=== PATIENT | female | born 1995 | race African-American/Black ===

== ENCOUNTER 2020-11-03 19:27 | Inpatient (IN) ==
[2020-11-03 20:06] LABS: Bilirubin,Urine Negative (Negative); Blood, Urine Negative (Negative); Glucose,Urine (UA) >=500 mg/dL (Negative); Ketones,Urine Negative (Negative); Mucus,Urine Occasional /LPF (Occasional); Nitrite,Urine Negative (Negative); Protein,Urine Negative; Squamous Epithelial Cell,Urine Occasional /HPF (0-10); Urine Appearance CLEAR (Clear); Urine Color Yellow (Yellow); Urine Specific Gravity 1.012 (1.001-1.035); Urine Urobilinogen < 2.0 EU/DL (0.2-1.0)
[2020-11-03] MEDS ORDERED: ONDANSETRON 4 MG/2 ML VIAL IV PRN (20:47)
[2020-11-03] MEDS ORDERED: BUTORPHANOL 2 MG/ML VIAL IV PRN (20:47)
[2020-11-03] MEDS ORDERED: MEPERIDINE 50 MG/1 ML VIAL IV PRN (20:47)
[2020-11-03] MEDS ORDERED: MAGNESIUM SULF DRIP 40 GM/1,000 ML ML IV SCH (21:00)
[2020-11-03 21:29] LABS: Basophils % 0.2 % (0.0-0.8); Eosinophils # 0.2 10*3/uL (0.0-0.87); Eosinophils % 1.1 % (0.00-10.9); Hematocrit 37.1 VOL% (35.7-47.0); Hemoglobin 12.3 GM/DL (12.0-16.0); Immature Granulocytes % 0.6 %; Lymphocytes % 12.5 % (21.3-54.2); Mean Corpuscular HGB Conc 33.2 GM/DL (32-36); Mean Corpuscular Volume 92.8 FL (87-102); Mean Platelet Volume 8.9 FL (9.6-12.0); Monocytes % 8.6 % (1.7-12.7); Platelet Count 212 T/CUMM (130-400); White Blood Count 15.8 T/CUMM (4-12)
[2020-11-03 21:54] LABS: Alanine Aminotransferase 17 U/L (13-56); Alkaline Phosphatase 76 U/L (45-117); Aspartate Amino Transferase 15 U/L (0-37); Bilirubin,Total < 0.39 MG/DL (0.20-1.00); Blood Urea Nitrogen 7 MG/DL (7-18); Calcium 8.6 MG/DL (8.5-10.1); Carbon Dioxide 25 MMOL/L (21-32); Estimated Glom Filtration Rate 149 ML/MIN; Glucose 74 MG/DL (74-106); Potassium 3.5 MMOL/L (3.5-5.1); Sodium 136 MMOL/L (136-145); Total Protein 7.2 G/DL (6.4-8.2)
[2020-11-03] MEDS: LACTATED RINGERS 1,000 ML IV SCH (22:44)
[2020-11-03] MEDS: AMPICILLIN INJ 2,000 MG in SODIUM CHLORIDE 0.9% 100 ML IV SCH (23:12)
[2020-11-03] MEDS: BETAMETH SODIUM PHOS/ACETATE 30 MG/5 ML VIAL IM SCH (23:12)
[2020-11-04 02:45] LABS: Bilirubin,Urine Negative (Negative); Blood, Urine Moderate mg/dL (Negative); Glucose,Urine (UA) Negative (Negative); Ketones,Urine 20 mg/dL (Negative); Mucus,Urine Occasional /LPF (Occasional); Nitrite,Urine Negative (Negative); Protein,Urine Negative; RBC,Urine 1 /HPF (0-4); Squamous Epithelial Cell,Urine Occasional /HPF (0-10); Urine Appearance CLEAR (Clear); Urine Color Colorless (Yellow); Urine Specific Gravity 1.005 (1.001-1.035); Urine Urobilinogen < 2.0 EU/DL (0.2-1.0)
[2020-11-04] MEDS: AMPICILLIN INJ 2,000 MG in SODIUM CHLORIDE 0.9% 100 ML IV SCH ×4 (04:06→21:05)
[2020-11-04] MEDS: NIFEdipine 10 MG CAPSULE PO SCH ×4 (10:30→21:05)
[2020-11-04] MEDS: LACTATED RINGERS 1,000 ML IV SCH ×2 (16:39→21:04)
[2020-11-04] MEDS: BETAMETH SODIUM PHOS/ACETATE 30 MG/5 ML VIAL IM SCH (22:47)
[2020-11-05] MEDS: NIFEdipine 10 MG CAPSULE PO SCH (00:48)
[2020-11-05] MEDS: AMPICILLIN INJ 2,000 MG in SODIUM CHLORIDE 0.9% 100 ML IV SCH (03:30)
[2020-11-05] MEDS ORDERED: NIFEdipine 10 MG CAPSULE PO SCH (04:00)
[2020-11-05] MEDS ORDERED: LIDOCAINE 1% 50 ML VIAL ONE (05:11)
[2020-11-05] MEDS ORDERED: TRANEXAMIC ACID 1,000 MG/10 ML VIAL ONE (05:11)
[2020-11-05] MEDS ORDERED: miSOPROStoL 200 MCG TABLET ONE (05:11)
[2020-11-05] MEDS ORDERED: OXYTOCIN/LR 20 UNIT/1,000 ML BAG IV ONE ×2 (05:11→06:35)
[2020-11-05] MEDS ORDERED: METHYLERGONOVINE 0.2 MG/1 ML AMP ONE (05:12)
[2020-11-05] MEDS ORDERED: SODIUM CHLORIDE 0.9% 100 ML IV ONE (05:12)
[2020-11-05] MEDS ORDERED: CARBOPROST TROMETHAMINE 250 MCG/ML AMP IM ONE (05:12)
[2020-11-05] MEDS ORDERED: ALBUTEROL 2.5 MG/3 ML NEB RESP TX PRN (05:17)
[2020-11-05 05:52] LABS: Cord Arterial Blood HCO3 22.7 MMOL/L
[2020-11-05 05:53] LABS: Cord Venous Blood HCO3 21.8 MMOL/L; Cord Venous Blood PCO2 43.5 MMHG
[2020-11-05] MEDS ORDERED: WITCH HAZEL PADS 100/JAR TOP PRN (06:35)
[2020-11-05] MEDS ORDERED: ONDANSETRON 4 MG/2 ML VIAL IV PRN (06:35)
[2020-11-05] MEDS ORDERED: HYDROCORTISONE 2.5% RECTAL CREAM 30 GM TUBE TOP PRN (06:35)
[2020-11-05] MEDS ORDERED: IBUPROFEN 800 MG TABLET PO PRN (06:35)
[2020-11-05] MEDS ORDERED: ACETAMINOPHEN 325 MG TABLET PO PRN (06:35)
[2020-11-05] MEDS ORDERED: DIPH/TET/ACEL PERT BOOSTER VACCINE 0.5 ML VIAL IM ONE (06:35)
[2020-11-05] MEDS ORDERED: BENZOCAINE 20%/MENTHOL 0.5% SPRAY 56 GM CAN TOP PRN (06:35)
[2020-11-05] MEDS ORDERED: oxyCODONE/ACETAMINOPHEN 5-325 MG TABLET PO PRN ×2 (06:35)
[2020-11-05] MEDS ORDERED: MEASLES/MUMPS/RUBELLA VACCINE 0.5 ML VIAL SUBCUT ONE (06:35)
[2020-11-05] MEDS ORDERED: RHO(D) IMMUNE GLOBULIN 300 MCG SYRINGE IM ONE (06:35)
[2020-11-05] MEDS ORDERED: BISACODYL 10 MG SUPP RECTAL PRN (06:35)
[2020-11-05] MEDS ORDERED: LANOLIN 50% CREAM 0.3 OZ TUBE TOP PRN (06:35)
[2020-11-05 07:15] LABS: Basophils % 0.1 % (0.0-0.8); Hematocrit 32.4 VOL% (35.7-47.0); Hemoglobin 10.7 GM/DL (12.0-16.0); Immature Granulocytes % 0.7 %; Immature Granulocytes Absolute 0.13 #; Lymphocytes # 0.8 10*3/uL (1.4-4.0); Lymphocytes % 4.2 % (21.3-54.2); Mean Corpuscular Volume 92.8 FL (87-102); Mean Platelet Volume 8.9 FL (9.6-12.0); Monocytes % 3.5 % (1.7-12.7); Neutrophils % 91.5 % (38.7-73.9); Platelet Count 199 T/CUMM (130-400); Red Blood Count 3.49 MC/CUMM (3.8-5.5); Red Cell Distribution Width 12.8 % (9.3-17.3); White Blood Count 19.2 T/CUMM (4-12)
[2020-11-05 07:36] LABS: Eosinophils 1 % (0-10); Lymphocytes 2 % (20-55); Platelet Estimate Adequate; Segmented Neutrophils 92 % (50-85); Total Cells Counted 100
[2020-11-05 07:37] LABS: Hypochromasia 1+; Microcytosis 1+
[2020-11-05 07:45] LABS: Alanine Aminotransferase 14 U/L (13-56); Albumin 2.4 G/DL (3.4-5.0); Alkaline Phosphatase 72 U/L (45-117); Aspartate Amino Transferase 17 U/L (0-37); Bilirubin,Total < 0.39 MG/DL (0.20-1.00); Blood Urea Nitrogen 4 MG/DL (7-18); Calcium 7.5 MG/DL (8.5-10.1); Carbon Dioxide 22 MMOL/L (21-32); Estimated Glom Filtration Rate 161 ML/MIN; Glucose 149 MG/DL (74-106); Osmolality,Calculated 274.7 MOS/KG (273-304); Potassium 3.8 MMOL/L (3.5-5.1); Sodium 138 MMOL/L (136-145); Total Protein 6.2 G/DL (6.4-8.2)
[2020-11-05 08:08] LABS: Hepatitis B Surface Ag Quant < 0.10 Index; Hepatitis B Surface Ag Result Non-Reactive (NonReactive)
[2020-11-05 08:14] LABS: HIV Antigen/Antibody Result Nonreactive (Nonreactive); Rubella Antibody IgG Result Non-Reactive (NonReactive)
[2020-11-05] MEDS: DOCUSATE SODIUM 100 MG CAPSULE PO SCH ×2 (09:43→21:33)
[2020-11-06 04:14] LABS: Basophils % 0.2 % (0.0-0.8); Eosinophils % 0.1 % (0.00-10.9); Hemoglobin 9.8 GM/DL (12.0-16.0); Immature Granulocytes Absolute 0.13 #; Lymphocytes # 1.8 10*3/uL (1.4-4.0); Lymphocytes % 13.7 % (21.3-54.2); Mean Corpuscular HGB Conc 32.7 GM/DL (32-36); Mean Corpuscular Volume 93.8 FL (87-102); Mean Platelet Volume 8.9 FL (9.6-12.0); Platelet Count 180 T/CUMM (130-400); Red Cell Distribution Width 12.9 % (9.3-17.3); White Blood Count 12.9 T/CUMM (4-12)
[2020-11-06] MEDS: DOCUSATE SODIUM 100 MG CAPSULE PO SCH (08:07)
[2020-11-06 09:27] VITALS: BP 102/60
== END 2020-11-06 11:10 | disposition home or self-care (01) | DRG 560 ==
LOC: N.LDOUT 19:27 → N.LD 19:29 → N.OB 11-05 09:27
PROVIDERS: ADMIT Specialist; ATTEND Specialist

== ENCOUNTER 2021-09-22 19:17 | Inpatient (IN) ==
[2021-09-22 19:56] LABS: Urine Appearance Slightly Hazy (Clear); Urine Color Light Yellow (Yellow)
[2021-09-22 19:57] LABS: Bilirubin,Urine Negative (Negative); Blood, Urine Negative (Negative); Glucose,Urine (UA) Negative (Negative); Ketones,Urine 40 mg/dL (Negative); Nitrite,Urine Negative (Negative); Protein,Urine Negative (Negative); Urine Urobilinogen 0.2 eU/dL (<2.0)
[2021-09-22 20:08] LABS: Bacteria,Urine Moderate /HPF (Few); Mucus,Urine Occasional /LPF (Occasional); Squamous Epithelial Cell,Urine Many /HPF (0-10)
[2021-09-22] MEDS ORDERED: NIFEdipine 10 MG CAPSULE PO ONE (20:37)
[2021-09-22] MEDS ORDERED: CARBOPROST TROMETHAMINE 250 MCG/ML AMP IM PRN (21:43)
[2021-09-22] MEDS ORDERED: LACTATED RINGERS 250 ML IV ONE (21:43)
[2021-09-22] MEDS ORDERED: OXYTOCIN/LR 20 UNIT/1,000 ML BAG IV ONE (21:43)
[2021-09-22] MEDS ORDERED: LACTATED RINGERS 500 ML IV PRN (21:43)
[2021-09-22] MEDS ORDERED: TRANEXAMIC ACID 1,000 MG in SODIUM CHLORIDE 0.9% 100 ML IV PRN (21:43)
[2021-09-22] MEDS ORDERED: METHYLERGONOVINE 0.2 MG/1 ML AMP IM PRN (21:43)
[2021-09-22] MEDS ORDERED: miSOPROStoL 200 MCG TABLET RECTAL PRN (21:43)
[2021-09-22] MEDS ORDERED: MAGNESIUM SULF RIDER 4 GM/100 ML PREMIX IV ONE (21:45)
[2021-09-22] MEDS: LACTATED RINGERS 1,000 ML IV SCH (21:55)
[2021-09-22] MEDS: BETAMETH SODIUM PHOS/ACETATE 30 MG/5 ML VIAL IM SCH (22:13)
[2021-09-22 22:24] LABS: Basophils % 0.4 % (0.0-0.8); Eosinophils # 0.3 10*3/uL (0.0-0.87); Eosinophils % 3.7 % (0.00-10.9); Hematocrit 37.4 VOL% (35.7-47.0); Hemoglobin 12.4 GM/DL (12.0-16.0); Immature Granulocytes % 0.5 %; Immature Granulocytes Absolute 0.04 #; Lymphocytes # 2.1 10*3/uL (1.4-4.0); Mean Corpuscular HGB Conc 33.2 GM/DL (32-36); Mean Corpuscular Volume 90.6 FL (87-102); Monocytes # 0.6 10*3/uL (0.11-0.8); Monocytes % 7.3 % (1.7-12.7); Neutrophils % 63.1 % (38.7-73.9); Platelet Count 242 T/CUMM (130-400); Red Blood Count 4.13 MC/CUMM (3.8-5.5); Red Cell Distribution Width 12.3 % (9.3-17.3); White Blood Count 8.5 T/CUMM (4-12)
[2021-09-22] MEDS: MAGNESIUM SULF DRIP 40 GM/1,000 ML ML IV SCH (23:15)
[2021-09-23] MEDS: ACETAMINOPHEN 500 MG TABLET PO PRN (07:11)
[2021-09-23] MEDS: LACTATED RINGERS 1,000 ML IV SCH (08:58)
[2021-09-23] MEDS ORDERED: NIFEdipine 10 MG CAPSULE PO ONE (09:38)
[2021-09-23] MEDS: BETAMETH SODIUM PHOS/ACETATE 30 MG/5 ML VIAL IM SCH (09:53)
[2021-09-23] MEDS: AMPICILLIN INJ 1,000 MG in SODIUM CHLORIDE 0.9% 100 ML IV SCH ×4 (09:54→22:45)
[2021-09-23] MEDS: ERYTHROMYCIN INJ 500 MG in SODIUM CHLORIDE 0.9% 100 ML IV SCH ×2 (11:08→16:45)
[2021-09-23] MEDS: ONDANSETRON 4 MG/2 ML VIAL IV PRN ×2 (14:00→19:52)
[2021-09-23] MEDS: NIFEdipine 10 MG CAPSULE PO SCH ×3 (14:05→22:45)
[2021-09-23 14:19] LABS: Rubella Antibody IgG Result Non-Reactive (NonReactive)
[2021-09-23 14:39] LABS: HIV Antigen/Antibody Result Nonreactive (Nonreactive); Hepatitis B Surface Ag Quant < 0.10 Index; Hepatitis B Surface Ag Result Non-Reactive (NonReactive)
[2021-09-23] MEDS: MAGNESIUM SULF DRIP 40 GM/1,000 ML ML IV SCH (17:35)
[2021-09-23] MEDS: DOCUSATE SODIUM 100 MG CAPSULE PO SCH (21:22)
[2021-09-24] MEDS: ERYTHROMYCIN INJ 500 MG in SODIUM CHLORIDE 0.9% 100 ML IV SCH ×3 (00:15→11:21)
[2021-09-24] MEDS: ACETAMINOPHEN 500 MG TABLET PO PRN ×3 (00:23→20:40)
[2021-09-24] MEDS: LACTATED RINGERS 1,000 ML IV SCH (02:03)
[2021-09-24] MEDS: AMPICILLIN INJ 1,000 MG in SODIUM CHLORIDE 0.9% 100 ML IV SCH ×3 (02:20→10:10)
[2021-09-24] MEDS: NIFEdipine 10 MG CAPSULE PO SCH ×7 (02:20→23:11)
[2021-09-24] MEDS: ONDANSETRON 4 MG/2 ML VIAL IV PRN (06:41)
[2021-09-24] MEDS: DOCUSATE SODIUM 100 MG CAPSULE PO SCH (09:09)
[2021-09-25] MEDS: DOCUSATE SODIUM 100 MG CAPSULE PO SCH ×2 (01:01→17:28)
[2021-09-25] MEDS: NIFEdipine 10 MG CAPSULE PO SCH ×5 (02:01→14:31)
[2021-09-25] MEDS: ACETAMINOPHEN 500 MG TABLET PO PRN ×2 (09:32→22:45)
[2021-09-25] MEDS: TERBUTALINE 1 MG/1 ML VIAL PO SCH ×3 (11:31→21:24)
[2021-09-26] MEDS: DOCUSATE SODIUM 100 MG CAPSULE PO SCH (00:45)
[2021-09-26] MEDS: TERBUTALINE 1 MG/1 ML VIAL PO SCH ×2 (03:05→08:28)
[2021-09-26 07:49] VITALS: BP 112/56
== END 2021-09-26 11:25 | disposition home or self-care (01) | DRG 833 ==
LOC: N.LDOUT 19:17 → N.LD 19:19 → N.OB 09-24 14:55
PROVIDERS: ADMIT Specialist; ATTEND Specialist

== ENCOUNTER 2021-11-02 23:04 | Inpatient (IN) ==
[2021-11-02 23:37] LABS: Bacteria,Urine Occasional /HPF (Few); Bilirubin,Urine Negative (Negative); Blood, Urine Moderate mg/dL (Negative); Glucose,Urine (UA) >=1000 mg/dL (Negative); Ketones,Urine Negative (Negative); Nitrite,Urine Negative (Negative); Protein,Urine Negative (Negative); Squamous Epithelial Cell,Urine Occasional /HPF (0-10); Urine Appearance Clear (Clear); Urine Color Yellow (Yellow); Urine Urobilinogen 0.2 eU/dL (<2.0); Urine pH 6.5 (4.5-8.0)
[2021-11-03] MEDS ORDERED: CALCIUM GLUCONATE RIDER 1,000 MG/50 ML PREMIX IV PRN (00:35)
[2021-11-03] MEDS ORDERED: MAGNESIUM SULF RIDER 4 GM/100 ML PREMIX IV ONE (00:35)
[2021-11-03] MEDS ORDERED: LACTATED RINGERS 500 ML IV PRN (00:41)
[2021-11-03] MEDS ORDERED: ONDANSETRON 4 MG/2 ML VIAL IV PRN ×2 (00:41→11:16)
[2021-11-03] MEDS ORDERED: METHYLERGONOVINE 0.2 MG/1 ML AMP IM PRN (00:41)
[2021-11-03] MEDS ORDERED: LACTATED RINGERS 250 ML IV ONE (00:41)
[2021-11-03] MEDS ORDERED: BUTORPHANOL 2 MG/ML VIAL IV PRN (00:41)
[2021-11-03] MEDS ORDERED: miSOPROStoL 200 MCG TABLET RECTAL PRN (00:41)
[2021-11-03] MEDS ORDERED: OXYTOCIN/LR 20 UNIT/1,000 ML BAG IV ONE ×3 (00:41→11:16)
[2021-11-03] MEDS ORDERED: BUTORPHANOL 1 MG/ML VIAL IV PRN (00:41)
[2021-11-03] MEDS ORDERED: TRANEXAMIC ACID 1,000 MG in SODIUM CHLORIDE 0.9% 100 ML IV PRN (00:41)
[2021-11-03] MEDS ORDERED: CARBOPROST TROMETHAMINE 250 MCG/ML AMP IM PRN (00:41)
[2021-11-03] MEDS ORDERED: MAGNESIUM SULF DRIP 40 GM/1,000 ML ML IV SCH (01:00)
[2021-11-03] MEDS ORDERED: BETAMETH SODIUM PHOS/ACETATE 30 MG/5 ML VIAL IM SCH (01:00)
[2021-11-03 01:28] LABS: Basophils % 0.2 % (0.0-0.8); Eosinophils # 0.1 10*3/uL (0.0-0.87); Eosinophils % 1.1 % (0.00-10.9); Hematocrit 31.9 VOL% (35.7-47.0); Hemoglobin 10.4 GM/DL (12.0-16.0); Immature Granulocytes % 0.8 %; Immature Granulocytes Absolute 0.09 #; Lymphocytes # 1.6 10*3/uL (1.4-4.0); Lymphocytes % 14.9 % (21.3-54.2); Mean Corpuscular HGB Conc 32.6 GM/DL (32-36); Mean Corpuscular Volume 89.1 FL (87-102); Mean Platelet Volume 8.9 FL (9.6-12.0); Monocytes % 8.8 % (1.7-12.7); Neutrophils % 74.2 % (38.7-73.9); Platelet Count 223 T/CUMM (130-400); Red Blood Count 3.58 MC/CUMM (3.8-5.5); Red Cell Distribution Width 12.7 % (9.3-17.3)
[2021-11-03] MEDS: LACTATED RINGERS 1,000 ML IV SCH ×2 (01:38→07:48)
[2021-11-03 01:59] LABS: Alanine Aminotransferase 13 U/L (13-56); Albumin 2.3 G/DL (3.4-5.0); Alkaline Phosphatase 124 U/L (45-117); Aspartate Amino Transferase 11 U/L (0-37); Bilirubin,Total < 0.39 MG/DL (0.20-1.00); Blood Urea Nitrogen 4 MG/DL (7-18); Calcium 8.6 MG/DL (8.5-10.1); Carbon Dioxide 23 MMOL/L (21-32); Chloride 107 MMOL/L (98-107); Glucose 149 MG/DL (74-106); Osmolality,Calculated 272.8 MOS/KG (273-304); Potassium 3.1 MMOL/L (3.5-5.1); Sodium 137 MMOL/L (136-145); Total Protein 6.1 G/DL (6.4-8.2)
[2021-11-03] MEDS: AMPICILLIN INJ 2,000 MG in SODIUM CHLORIDE 0.9% 100 ML IV SCH ×2 (03:26→07:49)
[2021-11-03] MEDS ORDERED: LACTATED RINGERS 250 ML IV PRN (05:06)
[2021-11-03] MEDS ORDERED: diphenhydrAMINE 50 MG/1 ML VIAL IV PRN ×2 (05:06)
[2021-11-03] MEDS ORDERED: ePHEDrine 50 MG/ML VIAL IV PRN (05:06)
[2021-11-03] MEDS ORDERED: PROMETHAZINE 25 MG/1 ML VIAL IM ONE (05:06)
[2021-11-03] MEDS ORDERED: FAMOTIDINE 20 MG/2 ML VIAL IV ONE ×2 (05:06→05:11)
[2021-11-03] MEDS ORDERED: hydrOXYzine HCL 25 MG/1 ML VIAL IM PRN (05:06)
[2021-11-03] MEDS ORDERED: ONDANSETRON 4 MG/2 ML VIAL IV ONE (05:06)
[2021-11-03] MEDS ORDERED: LACTATED RINGERS 500 ML IV ONE (05:06)
[2021-11-03] MEDS ORDERED: NALOXONE 0.4 MG/ML VIAL IV PRN (05:06)
[2021-11-03] MEDS ORDERED: CITRIC ACID/SODIUM CITRATE 30 ML UDCUP PO ONE (05:06)
[2021-11-03] MEDS ORDERED: LACTATED RINGERS 1,000 ML IV SCH (05:30)
[2021-11-03] MEDS ORDERED: fentaNYL 2 MCG/ROPIV 0.2% EPID 100 ML EPIDURAL SCH (05:30)
[2021-11-03] MEDS: POTASSIUM CHLORIDE 20 MEQ TABLET PO PRN ×4 (07:48→17:36)
[2021-11-03] MEDS ORDERED: SODIUM CHLORIDE 0.9% 0 ML IV ONE (10:28)
[2021-11-03] MEDS ORDERED: DIPH/TET/ACEL PERT BOOSTER VACCINE 0.5 ML VIAL IM ONE (11:16)
[2021-11-03] MEDS ORDERED: LANOLIN 50% CREAM 0.3 OZ TUBE TOP PRN (11:16)
[2021-11-03] MEDS ORDERED: MEASLES/MUMPS/RUBELLA VACCINE 0.5 ML VIAL SUBCUT ONE (11:16)
[2021-11-03] MEDS ORDERED: BISACODYL 10 MG SUPP RECTAL PRN (11:16)
[2021-11-03] MEDS ORDERED: RHO(D) IMMUNE GLOBULIN 300 MCG SYRINGE IM ONE (11:16)
[2021-11-03] MEDS ORDERED: HYDROCORTISONE 2.5% RECTAL CREAM 30 GM TUBE TOP PRN (11:16)
[2021-11-03] MEDS ORDERED: WITCH HAZEL PADS 100/JAR TOP PRN (11:16)
[2021-11-03] MEDS ORDERED: ACETAMINOPHEN 325 MG TABLET PO PRN (11:16)
[2021-11-03] MEDS ORDERED: oxyCODONE/ACETAMINOPHEN 5-325 MG TABLET PO PRN ×2 (11:16)
[2021-11-03] MEDS ORDERED: BENZOCAINE 20%/MENTHOL 0.5% SPRAY 56 GM CAN TOP PRN (11:16)
[2021-11-03 11:24] LABS: Cord Venous Blood HCO3 21.9 MMOL/L; Cord Venous Blood PCO2 48.2 MMHG; Cord Venous Blood PO2 25.3
[2021-11-03 13:44] LABS: Barbiturates Screen,Urine Negative (Negative); Benzodiazepines Screen,Urine Negative (Negative); Cannabinoid Screen,Urine Negative (Negative); Opiate Screen,Urine Negative (Negative); Phencyclidine Screen,Urine Negative (Negative)
[2021-11-03] MEDS ORDERED: IBUPROFEN 800 MG TABLET PO ONE (13:46)
[2021-11-03] MEDS: DOCUSATE SODIUM 100 MG CAPSULE PO SCH (21:33)
[2021-11-03] MEDS: IBUPROFEN 800 MG TABLET PO PRN (21:36)
[2021-11-04] MEDS: IBUPROFEN 800 MG TABLET PO PRN ×3 (04:41→21:47)
[2021-11-04 06:30] LABS: Basophils % 0.1 % (0.0-0.8); Eosinophils % 0.2 % (0.00-10.9); Immature Granulocytes % 0.5 %; Immature Granulocytes Absolute 0.08 #; Lymphocytes # 1.9 10*3/uL (1.4-4.0); Mean Corpuscular HGB Conc 32.3 GM/DL (32-36); Mean Corpuscular Volume 89.9 FL (87-102); Mean Platelet Volume 9.2 FL (9.6-12.0); Monocytes % 6.6 % (1.7-12.7); Neutrophils % 79.6 % (38.7-73.9); Platelet Count 236 T/CUMM (130-400); Red Blood Count 3.45 MC/CUMM (3.8-5.5); Red Cell Distribution Width 12.8 % (9.3-17.3); White Blood Count 14.6 T/CUMM (4-12)
[2021-11-04] MEDS: DOCUSATE SODIUM 100 MG CAPSULE PO SCH ×2 (10:35→21:46)
[2021-11-05 08:19] VITALS: BP 102/56
[2021-11-05] MEDS: DOCUSATE SODIUM 100 MG CAPSULE PO SCH (09:12)
[2021-11-05] MEDS: IBUPROFEN 800 MG TABLET PO PRN (09:13)
== END 2021-11-05 13:55 | disposition home or self-care (01) | DRG 807 ==
LOC: N.LDOUT 23:04 → N.LD 23:09 → N.OB 11-03 14:10
PROVIDERS: ADMIT Obstetrics & Gynecology; ATTEND Specialist